=== PATIENT | male | born 1940 | race Caucasian/White ===

== ENCOUNTER 2022-08-04 09:08 | Emergency (ER) | payer MEDICARE, OTHER ==
[2022-08-04 09:32] VITALS: PULSE 71
[2022-08-04 09:41] VITALS: BP 158/86
== END 2022-08-04 11:35 | disposition home or self-care (01) ==
LOC: CC.ED 09:08
DX: S22.41XA Multiple fractures of ribs, right side, initial encounter for closed fracture (principal); I25.10 Atherosclerotic heart disease of native coronary artery without angina pectoris; I25.2 Old myocardial infarction; J44.9 Chronic obstructive pulmonary disease, unspecified; K21.9 Gastro-esophageal reflux disease without esophagitis; E03.9 Hypothyroidism, unspecified; Z88.8 Allergy status to other drugs, medicaments and biological substances; Z88.5 Allergy status to narcotic agent; Z79.899 Other long term (current) drug therapy; Z79.82 Long term (current) use of aspirin; W00.0XXA Fall on same level due to ice and snow, initial encounter
CPT/HCPCS: 71101-RT; 99283

== ENCOUNTER → 2022-12-28 | Day surgery (SDC) | payer MEDICARE, OTHER ==
[~2022-12-28] MED LIST: Ketamine 200 MG/20 ML MDV ONE; Lactated Ringers 1,000 ML IV SCH; Propofol 200 MG/20 ML SDV ONE; fentaNYL 50 MCG/ML SDV ONE
[2022-12-28 08:50] VITALS: BP 124/62; PULSE 70
== END ==
LOC: CC.SDS 06:41
PROVIDERS: ATTEND Family Medicine
DX: D12.3 Benign neoplasm of transverse colon (principal); K57.30 Diverticulosis of large intestine without perforation or abscess without bleeding; K64.8 Other hemorrhoids; E03.9 Hypothyroidism, unspecified; E78.5 Hyperlipidemia, unspecified; G47.30 Sleep apnea, unspecified; I35.0 Nonrheumatic aortic (valve) stenosis; I11.0 Hypertensive heart disease with heart failure; I50.9 Heart failure, unspecified; N40.0 Benign prostatic hyperplasia without lower urinary tract symptoms; E11.9 Type 2 diabetes mellitus without complications; M17.9 Osteoarthritis of knee, unspecified; J45.909 Unspecified asthma, uncomplicated; Z87.891 Personal history of nicotine dependence; Z79.890 Hormone replacement therapy; Z79.899 Other long term (current) drug therapy; Z79.82 Long term (current) use of aspirin; Z88.2 Allergy status to sulfonamides; Z88.8 Allergy status to other drugs, medicaments and biological substances; Z95.5 Presence of coronary angioplasty implant and graft; Z98.84 Bariatric surgery status
CPT/HCPCS: 00811; 45380; 45385; 88305; 99100; J2704; J3010; J3490; J7120

== ENCOUNTER 2024-11-30 13:37 | Inpatient (IN) | payer MEDICARE ==
[2024-11-30] MEDS ORDERED: Ondansetron 4 MG Tab.DIS PO PRN (14:54)
[2024-11-30] MEDS ORDERED: Sodium Chloride 0.9% 10 ML Syringe FLUSH PRN (14:54)
[2024-11-30] MEDS ORDERED: Acetaminophen 325 MG Tab PO PRN (14:54)
[2024-11-30] MEDS ORDERED: Ondansetron 4 MG/2 ML SDV IV PRN (14:54)
[2024-11-30 15:12] LABS: BASOPHILS ABSOLUTE AUTO 0.03 10^3/uL (0.00-0.50); BASOPHILS PERCENT AUTO 0.7 % (0-1); EOSINOPHILS ABSOLUTE AUTO 0.12 10^3/uL (0.00-1.50); EOSINOPHILS PERCENT AUTO 2.9 % (0-6); HEMATOCRIT 36.1 % (42.0-52.0); HEMOGLOBIN 11.4 g/dL (14.0-18.0); LYMPHOCYTES ABSOLUTE AUTO 0.77 10^3/uL (0.60-5.00); LYMPHOCYTES PERCENT AUTO 18.5 % (24-44); MEAN CORPUSCULAR HEMOGLOBIN 27.3 pg (27.0-32.0); MEAN CORPUSCULAR HGB CONC 31.6 g/dL (32.0-36.0); MEAN CORPUSCULAR VOLUME 86.4 fL (83.0-97.0); MONOCYTES ABSOLUTE AUTO 0.72 10^3/uL (0.00-1.50); MONOCYTES PERCENT AUTO 17.3 % (0-10); NEUTROPHILS ABSOLUTE AUTO 2.53 x10^3/uL (1.80-8.00); NEUTROPHILS PERCENT AUTO 60.6 % (41-71); PLATELET COUNT,PLT 269 10^3/uL (150-400); RED BLOOD CELL COUNT 4.18 x10^6/uL (4.50-6.00); WHITE BLOOD CELL COUNT,WBC 4.2 10^3/uL (4.0-11.0)
[2024-11-30] MEDS: Furosemide 40 MG/4 ML VIAL IVPUSH ONE (15:30)
[2024-11-30 15:36] LABS: ALBUMIN 3.2 g/dL (3.4-5.0); CALCIUM 8.7 mg/dL (8.4-10.1); CREATININE 0.9 mg/dL (0.7-1.3); EST CRCL DRUG DOSING (CG) 65.34 mL/min; POTASSIUM,K 3.6 mEq/L (3.5-5.0); PROTEIN TOTAL,TP 6.7 g/dL (6.4-8.2)
[2024-11-30] MEDS: Montelukast 10 MG Tab PO SCH (20:15)
[2024-11-30] MEDS: Apixaban 5 MG Tab PO SCH (20:15)
[2024-11-30] MEDS: atorvaSTATin 10 MG Tab PO SCH (20:15)
[2024-11-30] MEDS: Potassium Gluconate (99 MG) 2 MEQ Tab PO SCH (20:15)
[2024-11-30] MEDS: Metoprolol Succinate 25 MG Tab.ER PO SCH (20:15)
[2024-11-30] MEDS: Tamsulosin 0.4 MG Cap.ER PO SCH (20:16)
[2024-11-30] MEDS: Latanoprost 0.005% Ophth Soln 2.5 ML Bottle EYEBOTH SCH (20:16)
[2024-12-01] MEDS: Aspirin 81 MG Tab.Chew PO SCH (07:24)
[2024-12-01] MEDS: Pantoprazole 40 MG Tab.CR PO SCH (07:24)
[2024-12-01] MEDS: Lisinopril 20 MG Tab PO SCH (07:25)
[2024-12-01] MEDS: Chlorthalidone 25 MG Tab PO SCH (07:25)
[2024-12-01] MEDS: Levothyroxine 150 MCG Tab PO SCH (07:25)
[2024-12-01] MEDS: Multivitamin Tab PO SCH (07:25)
[2024-12-01] MEDS: Furosemide 40 MG/4 ML VIAL IVPUSH SCH (07:26)
[2024-12-01] MEDS: Cholecalciferol (Vitamin D3) 25 MCG Tab PO SCH (07:26)
[2024-12-01] MEDS: amLODIPine 10 MG Tab PO SCH (07:26)
[2024-12-01] MEDS: Furosemide 40 MG Tab PO SCH (09:09)
[2024-12-01 09:15] LABS: BASOPHILS ABSOLUTE AUTO 0.03 10^3/uL (0.00-0.50); BASOPHILS PERCENT AUTO 0.7 % (0-1); EOSINOPHILS ABSOLUTE AUTO 0.12 10^3/uL (0.00-1.50); EOSINOPHILS PERCENT AUTO 2.6 % (0-6); HEMATOCRIT 39.4 % (42.0-52.0); HEMOGLOBIN 12.4 g/dL (14.0-18.0); LYMPHOCYTES ABSOLUTE AUTO 0.53 10^3/uL (0.60-5.00); LYMPHOCYTES PERCENT AUTO 11.5 % (24-44); MEAN CORPUSCULAR HEMOGLOBIN 27.3 pg (27.0-32.0); MEAN CORPUSCULAR HGB CONC 31.5 g/dL (32.0-36.0); MEAN CORPUSCULAR VOLUME 86.8 fL (83.0-97.0); MONOCYTES ABSOLUTE AUTO 0.41 10^3/uL (0.00-1.50); MONOCYTES PERCENT AUTO 8.9 % (0-10); NEUTROPHILS PERCENT AUTO 76.3 % (41-71); PLATELET COUNT,PLT 316 10^3/uL (150-400); RED BLOOD CELL COUNT 4.54 x10^6/uL (4.50-6.00); WHITE BLOOD CELL COUNT,WBC 4.6 10^3/uL (4.0-11.0)
[2024-12-01 09:31] LABS: ALBUMIN 3.3 g/dL (3.4-5.0); BILIRUBIN TOTAL 1.5 mg/dL (0.0-1.0); CALCIUM 8.9 mg/dL (8.4-10.1); CREATININE 1.1 mg/dL (0.7-1.3); EST CRCL DRUG DOSING (CG) 53.46 mL/min; POTASSIUM,K 4.1 mEq/L (3.5-5.0)
[2024-12-01] MEDS: Albuterol 0.083% 2.5 MG/3 ML Neb Soln INH PRN (13:18)
[2024-12-02 07:26] LABS: BASOPHILS ABSOLUTE AUTO 0.03 10^3/uL (0.00-0.50); BASOPHILS PERCENT AUTO 0.6 % (0-1); EOSINOPHILS ABSOLUTE AUTO 0.12 10^3/uL (0.00-1.50); EOSINOPHILS PERCENT AUTO 2.4 % (0-6); HEMATOCRIT 38.3 % (42.0-52.0); HEMOGLOBIN 12.4 g/dL (14.0-18.0); IMMATURE GRAN ABSOLUTE AUTO 0.01 10^3/uL (0.00-0.49); IMMATURE GRAN PERCENT AUTO 0.2 % (0.0-4.9); LYMPHOCYTES ABSOLUTE AUTO 0.72 10^3/uL (0.60-5.00); LYMPHOCYTES PERCENT AUTO 14.5 % (24-44); MEAN CORPUSCULAR HEMOGLOBIN 27.7 pg (27.0-32.0); MEAN CORPUSCULAR HGB CONC 32.4 g/dL (32.0-36.0); MEAN CORPUSCULAR VOLUME 85.5 fL (83.0-97.0); MONOCYTES PERCENT AUTO 18.2 % (0-10); NEUTROPHILS ABSOLUTE AUTO 3.17 x10^3/uL (1.80-8.00); NEUTROPHILS PERCENT AUTO 64.1 % (41-71); PLATELET COUNT,PLT 328 10^3/uL (150-400); RED BLOOD CELL COUNT 4.48 x10^6/uL (4.50-6.00)
[2024-12-02 07:31] LABS: HEMOGLOBIN A1C 6.2 % (4.8-5.6)
[2024-12-02 07:41] LABS: ALBUMIN 3.3 g/dL (3.4-5.0); BILIRUBIN TOTAL 1.4 mg/dL (0.0-1.0); EST CRCL DRUG DOSING (CG) 58.81 mL/min; POTASSIUM,K 3.6 mEq/L (3.5-5.0)
[2024-12-02 07:53] VITALS: BP 147/82; PULSE 89
== END 2024-12-02 10:33 | disposition home or self-care (01) | DRG 293 ==
LOC: CC.MS 13:37 → UNDOADMOB 14:52 → CC.MS 14:52 → OBSVTOIN 12-01 13:37
PROVIDERS: ADMIT Physician Assistant Medical; ATTEND Physician Assistant Medical
DX: I50.9 Heart failure, unspecified (principal); I25.810 Atherosclerosis of coronary artery bypass graft(s) without angina pectoris; J44.89 Other specified chronic obstructive pulmonary disease; I50.33 Acute on chronic diastolic (congestive) heart failure; I25.10 Atherosclerotic heart disease of native coronary artery without angina pectoris; F17.200 Nicotine dependence, unspecified, uncomplicated; I25.2 Old myocardial infarction; J45.909 Unspecified asthma, uncomplicated; Z79.890 Hormone replacement therapy; J44.9 Chronic obstructive pulmonary disease, unspecified; K21.9 Gastro-esophageal reflux disease without esophagitis; M54.9 Dorsalgia, unspecified; I35.0 Nonrheumatic aortic (valve) stenosis; I48.91 Unspecified atrial fibrillation; G89.29 Other chronic pain; E03.9 Hypothyroidism, unspecified; Z98.890 Other specified postprocedural states; Z96.659 Presence of unspecified artificial knee joint; Z72.0 Tobacco use; Z79.899 Other long term (current) drug therapy; Z79.82 Long term (current) use of aspirin; Z95.5 Presence of coronary angioplasty implant and graft; Z98.49 Cataract extraction status, unspecified eye; Z88.8 Allergy status to other drugs, medicaments and biological substances
CPT/HCPCS: 36415; 71046; 80053; 83036; 83880; 85025; 94640; 96374; 96376; 99223; 99239; A9270-GY; G0378; J1940